=== PATIENT | male | born 1955 | race Caucasian/White ===

== ENCOUNTER → 2016-04-10 | Day surgery (SDC) | payer BC ==
[~2016-04-10] MED LIST: BUPIVACAINE/EPINEPHRINE 0.25% PF 30 ML VIAL ONE; KETOROLAC TROMETHAMINE 30 MG/ML (IVP) VIAL IV PUSH ONE; LACTATED RINGER'S 1000 ML INJ 1,000 ML ONE; MEPERIDINE HCL 25 MG/ML VIAL ONE; MIDAZOLAM HCL 2 MG/2 ML VIAL ONE; NS 100 ML (PAB BAG) 100 ML IV ONE; ONDANSETRON HCL 4 MG/2 ML VIAL IV PUSH ONE; PROPOFOL 200 MG/20 ML AMP IV ONE; ceFAZolin INJ 1,000 MG VIAL ONE
--- NOTE | 2016-04-10 16:52 | TN ---
cc: JOE TELLEZ M.D. DATE OF SURGERY: 04/10/2016 PREOPERATIVE DIAGNOSIS Bilateral inguinal hernia umbilical hernia. POSTOPERATIVE DIAGNOSES Left indirect inguinal hernia Right indirect inguinal hernia Umbilical hernia. PROCEDURES: Laparoscopic repair bilateral inguinal hernia with mesh and umbilical hernia repair. SURGEON Dr. Joe Tellez. BRANCH ASSISTANT: AUGUSTINE Clarke ANESTHESIA General INDICATIONS This is a very pleasant 61-year-old gentleman who presents with a recurrent right inguinal hernia. The repair about 30 years ago without mesh. He has developed a symptomatic bulge. He feels or may also be hernia on the left. PHYSICAL EXAMINATION: Physical exam demonstrated on bilateral inguinal hernias and a small umbilical hernia. INTRAOPERATIVE FINDINGS As discussed above. ESTIMATED BLOOD LOSS: Estimated blood loss is minimal. The surgical procedure was assisted by my nurse practitioner. My CRYSTAL SLICER presence was necessary throughout the case to provide adequate visualization. My CRYSTAL SLICER was assisting me throughout the duration of the procedure. The skill set of a nurse practitioner was medically necessary to complete this procedure. During the surgical case the aerospace technician was at the back table and the CRYSTAL SLICER was directly assisting me. DESCRIPTION OF PROCEDURE IN DETAIL The patient identified as Roly Samuel taken to the operating room and placed in the supine position. Sequential compression devices were placed on bilateral lower extremities. Following induction of adequate general anesthesia the patient's lower abdomen was prepped and draped in usual sterile fashion with Betadine. A time-out procedure was performed. Following completion time-out procedure everyone's satisfaction within the room a proposed infraumbilical transverse incision was made with a marking pen, infiltrated local anesthetic and local anesthetic was placed around the umbilicus. The incision was carried out with scalpel and the umbilicus was lifted off the herniated preperitoneal fatty tissue using sharp dissection. The fascia was grasped with Kiko clamp and the anterior rectus fascia on the left side was identified. There was a perforating nerve which opening was extended superiorly and inferiorly to allow for development of preperitoneal plane and the nerve was preserved. The patient was placed in slight Trendelenburg position in the preperitoneal dissecting balloon was placed in preperitoneal space its balloon inflated to insufflation to level of 11 mmHg ensued. Two infraumbilical midline 5 mm trocar was then placed in preperitoneal space under direct laparoscopic view after incision skin with scalpel after placement of the structural balloon trocar in infraumbilical position. Attention was turned first identification of pubic symphysis and Frank's ligaments. Blunt dissection with blunt graspers was performed laterally and posteriorly of the spermatic cord. The anteromedial surface exam. There was an obvious indirect inguinal hernia sac which was reduced to the base of spermatic cord and doing so small defect was created which was closed with 0-PDS Endoloop. A small amount of the cord lipomatous fat was reduced from the inguinal canal to the preperitoneal space. The inguinal floor was reinforced with a 4 x 6 inch piece of atrium Prolene mesh was which was cut with an anterolateral slit placed around the spermatic cord and tacked position pro tack device. Tacks were placed to approximate the anterolateral slit on the anterior border Frank's ligament superior border of mesh. A 2 x 5 inch piece of mesh was placed across the anterolateral slit and held position pro tack device. Photographs were taken completed repair. Attention was turned to the right side. Similar blunt dissection ensued allowing for identification of pubic symphysis Frank's ligaments. A large direct hernia defect was an incarcerated tissue within it which was reduced using blunt graspers. The pseudo sac was tacked to the anterior Frank's ligament with the pro tack device and blunt dissection lateral and posterior spermatic cord was performed using the blunt graspers. The anteromedial surface examined. Adherent peritoneum was reduced to the base of spermatic cord using blunt graspers. A 4 x 6 inch piece of atrium Prolene mesh was cut from the anterolateral slit placed around the spermatic cord and tacked position pro tack device. Tacks were placed to approximate the anterolateral slit along the anterior border Frank's ligament superior border of the mesh. A 2 x 5 inch piece of mesh was placed across the anterolateral slit and held position pro tack device. Care was taken to avoid tack placement inferolaterally to avoid cutaneous nerve injury. Photographs were taken of the completed repairs. Remaining local anesthetic was placed in preperitoneal space and trocars removed under direct visualization, there was no evidence of bleeding from trocar sites. CO2 that had gotten into the peritoneal cavity through the small opening in the hernia sac on the left was relieved, after the peritoneum was opened with a hemostat. The anterior rectus fascial incision left side was closed with running 2-0 Vicryl suture. The umbilicus was closed with interrupted inverted zero Prolene sutures. Also the umbilical hernia defect was approximated interrupted inverted zero Prolene sutures. The umbilicus was reformed with 2-0 Vicryl. 3-0 Vicryl as placed in the dermis subcutaneous tissue and skin was approximated at the three trocar sites with 4-0 Monocryl subcuticular sutures. Dressings were applied, Mastisol inch brown Steri-Strips, gauze and Tegaderm were placed over the umbilicus. The patient tolerated the procedure without apparent complication. Sponge, needle and instrument counts were correct at the end of case. MD PIERRE Bailey/aiden /4:24 PM /4:39 PM MTDLuna
== END | disposition home or self-care (01) ==
LOC: ESDC 12:35
PROVIDERS: ATTEND Surgery Trauma Surgery
DX: K40.20 Bilateral inguinal hernia, without obstruction or gangrene, not specified as recurrent (principal); K42.9 Umbilical hernia without obstruction or gangrene
CPT/HCPCS: 00750; 00840; 49585; 49650; C1727; C1781; J0690; J1885; J2175; J2250; J2405; J3010; J7120